=== PATIENT | female | born 1985 | race Caucasian/White ===

== ENCOUNTER 2023-07-24 07:58 | Inpatient (IN) | payer OTHER, SELFPAY ==
[2023-07-23] MEDS: LR 1000 IV (14:30)
[2023-07-24 08:14] VITALS: BP 108/72; BMI 28.0
[2023-07-24] MEDS: LR 1000 IV (08:30)
[2023-07-24 09:07] LABS: % Basophils 0.5 % (0-2); % Eosinophils 0.5 % (0-6); % Immature Granulocytes 0.6 % (0-0.5); % Lymphocytes 21.5 % (20.5-51.1); % Monocytes 10.4 % (1.7-9.3); % Neutrophils 66.5 % (42.2-75.2); Absolute Lymphocytes 1.4 10^3/uL (1.2-3.4); Absolute Monocytes 0.7 10^3/uL (0.1-0.6); Absolute Neutrophils 4.4 10^3/uL (1.4-6.5); Hematocrit 33.6 % (37.0-47.0); Hemoglobin 11.7 g/dL (12.0-16.0); Mean Corp Hgb Conc. 34.8 g/dL (33.0-37.0); Mean Corpuscular Hgb 32.2 pg (27.0-31.0); Mean Corpuscular Volume 92.6 fL (81.0-99.0); Nucleated Red Blood Cells % 0 %; Platelet Count 186 10^3/uL (130-400); Red Blood Cell Count 3.63 10^6/uL (4.20-5.40); Red Cell Dist. Width 12.4 % (11.5-14.5); White Blood Cell Count 6.7 10^3/uL (4.8-10.8)
[2023-07-24] MEDS: CYTOTEC 25 MICROGRAM VAG (09:18)
[2023-07-24] MEDS: CYTOTEC 50 MICROGRAM PO (13:32)
[2023-07-24] MEDS: SUBLIMAZE 100 MCG EPIDURAL (19:08)
[2023-07-24] MEDS: FENTANYL/BUPIVACAINE 100 EPIDURAL (19:09)
[2023-07-24] MEDS: PITOCIN 30 UNITS/NSS 500 ML IV (22:05)
[2023-07-25] MEDS: MOTRIN 600 MG PO ×3 (01:21→22:03)
[2023-07-25 06:14] LABS: Hematocrit 29.9 % (37.0-47.0); Hemoglobin 10.6 g/dL (12.0-16.0)
[2023-07-26 13:30] LABS: Syphilis/T. pallidum Ab Reflex Negative (Negative)
== END 2023-07-26 12:49 | disposition home or self-care (01) | DRG 807 ==
LOC: LDRP 07:58
PROVIDERS: ADMITTING PHYSICIAN Obstetrics & Gynecology
PROC: 10E0XZZ Delivery of Products of Conception, External Approach (ICD-10-PCS; 2023-07-24)
PROC: 3E0P7VZ Introduction of Hormone into Female Reproductive, Via Natural or Artificial Opening (ICD-10-PCS; 2023-07-24)
DX: O80 Encounter for full-term uncomplicated delivery (principal); Z37.0 Single live birth; Z87.442 Personal history of urinary calculi; Z3A.39 39 weeks gestation of pregnancy
CPT/HCPCS: 36415; 85014; 85018; 85025; 86780; 86850; 86900; 86901